=== PATIENT | female | born 1990 | race Caucasian/White ===

== ENCOUNTER 2017-05-29 03:21 | Inpatient (IN) | payer BC ==
[2017-05-29] MEDS: Oxytocin/Normal Saline 30 UNIT/500 ML BAG IV SCH (06:03)
[2017-05-29] MEDS: Lactated Ringers 1,000 ML IV SCH ×2 (06:03→18:33)
[2017-05-29] MEDS ORDERED: Sodium Chloride 0.9% 10 ML Syringe FLUSH PRN (06:57)
[2017-05-29] MEDS ORDERED: Misoprostol 400 MCG (4 X 100 MCG TAB) RECTAL PRN (06:57)
[2017-05-29] MEDS ORDERED: Carboprost Tromethamine 250 MCG/1 ML Amp IM PRN (06:57)
[2017-05-29] MEDS ORDERED: Lactated Ringers 500 ML IV ONE (06:57)
[2017-05-29] MEDS ORDERED: Methylergonovine 0.2 MG/1 ML Amp IM PRN (06:57)
[2017-05-29] MEDS ORDERED: Nalbuphine 20 MG/1 ML Amp IM PRN ×2 (06:57→16:59)
[2017-05-29] MEDS ORDERED: Ondansetron 4 MG/2 ML SDV IV PRN (06:57)
[2017-05-29] MEDS ORDERED: Lidocaine 1% 30 ML SDV INJECT PRN (06:57)
--- NOTE | 2017-05-29 08:48 | HP ---
CHIEF COMPLAINT: Bag of elizabeth has ruptured. HISTORY OF PRESENT ILLNESS: A 27-year-old, 1, para 0, currently at 38 and 3/7 weeks' gestation in her based on last menstrual period, dating confirmed with 20-week ultrasound, presented to Labor and Delivery this morning close to 4:00 a.m. about 3 hours after spontaneous rupture at home and wanting to be checked. She had verified AmniSure testing, equivocal Nitrazine testing, and we allowed her to ambulate for a couple of hours before official admission. She has been doing well. Good movement. A little bit of pink tinge with a spontaneous rupture but no gross vaginal bleeding. No headaches or blurry vision. No chest pain or shortness of breath. No fever or chills. No foul- smelling drainage or discharge. No change in her swelling. HISTORY: Normal anatomy ultrasound at 19 weeks 5 days. Cardiac views did need to be repeated and were normal. Placenta is anterior corpus. LABORATORY DATA: Blood type A positive. Antibody screen negative. Rubella nonimmune. Syphilis nonreactive. Hepatitis B, HIV, and hepatitis C all negative. Gonorrhea and chlamydia negative. Thyroid normal. Wet prep negative. Glucose tolerance test at one hour was 137; three-hour test was passed. Group B strep is negative. PAST MEDICAL HISTORY: Bacterial vaginosis. Ear piercings. No tattoos, IV drug use, or transfusions. History of bronchitis and chicken pox. History of external hemorrhoid and irregular menses, controlled with control pills. PAST SURGICAL HISTORY: Dental extractions. FAMILY HISTORY: Father and brother with asthma. Sister has a history of multiple births. Paternal side of the family also has a history of twins. A brother has a mental handicap due to Walters-Dieker syndrome, also known as lissencephaly 17p deletion. Paternal aunt has breast cancer. Maternal grandmother had twins. Paternal grandmother had two sets of twins. Paternal grandfather; uncertain of his history, but he did have a cancer of uncertain primary and was a smoker. Otherwise, family history is negative for any defects, cystic fibrosis, anesthesia reactions, bleeding problems, clotting disorders, and seizures. 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 Her , Pilo, works on the farm. They have a Labrador dog at home. They are nonsmokers. No alcohol exposure this . MEDICATIONS: vitamins and Tagamet as needed. ALLERGIES: No known drug allergies. REVIEW OF SYSTEMS: As per the history of present illness. No regular contractions. Only some mild cramping. No diarrhea or constipation. No dysuria. No recent GI upset. No other acute concerns at this time. ASSESSMENT: 1. A 38 and 3/7 weeks' gestation by last menstrual period. 2. 1, para 0. 3. Premature rupture of membranes. 4. Blood type A positive, rubella nonimmune, and group B streptococcus negative. OBJECTIVE: Initial Vital Signs: Blood pressure 139/87, pulse of 85, and temperature is 98.6. HEENT: Grossly unremarkable. Neck: Supple without adenopathy. Heart: Regular without murmur. Lungs: Clear bilaterally. Auscultation with equal chest expansion. Abdomen: Soft, gravid, and nontender. heart tones are 130 beats per minute at baseline. Moderate wmho-vk-qtvy variability. Accelerations noted. [place] showing mild contractions about every 3 to 4 minutes with some spacing intermittently. Vaginal: Cervix is dimple, thick, and high per nurse's examination. Extremities: Trace edema. No erythema or tenderness. Neurologic: No focal deficits. PLAN: The patient has been admitted to the hospital, and Pitocin has been running for a couple of hours. We plan on keeping it at 6 to allow some cervical ripening because the cervix is long and thick and only one dimple dilated. After that, we will continue increasing the Pitocin as tolerated to get her into active labor. The patient and her are in agreement with the plan. [facility] /[id number]
[2017-05-29] MEDS ORDERED: hydrALAZINE 25 MG Tab PO PRN (19:09)
[2017-05-29] MEDS ORDERED: hydrOXYzine HCl 25 MG Tab PO PRN (19:13)
[2017-05-30] MEDS: Lactated Ringers 1,000 ML IV SCH ×2 (04:47→05:29)
[2017-05-30] MEDS ORDERED: EPINEPHrine 1 MG/ML SDV ONE (05:00)
[2017-05-30] MEDS ORDERED: fentaNYL 100 MCG/2 ML SDV ONE (05:00)
[2017-05-30] MEDS: Oxytocin/Normal Saline 30 UNIT/500 ML BAG IV SCH (05:30)
--- NOTE | 2017-05-30 05:59 | PCM.PRNOTE ---
- Free Text/Narrative Note: Requested to provide analgesia to full term patient in severe pain. Upon entering the room, patient is lying on left side complaining of severe abdominal pain and discomfort. Procedure was discussed with patient including adverse outcomes and expectations. Pt consented to analgesia, SAB/IT. Pt placed into a sitting position. Landmarks for SAB/IT were identified and marked. Back was prepped with betadine x3. A sterile, transparent, fenestrated drape was applied. Excess betadine was removed. Using 3 mL of a 1% lidocaine solution, a skin wheel was placed at the L3/L4 interspace. First attempt was unsuccessful, had a paresthesia to right leg. Second attempt, using same technique, was at L4/L5, also unsuccessful. Pt had a paresthesia to right leg. Third attempt was back at L3/L4 and angled a little lateral. A 24 ga (4 inch ) Pencan spinal needle was inserted until positive for CSF. Negative for heme or paresthesias. Injected fentanyl 20 mcg, sufentanil 10 mcg, and 12 mg of a 0.75% bupivacaine solution with an epi wash. Pt was placed left lateral position for approximately 20 minutes. There were zero complications or adverse outcomes. Will continue to monitor.
[2017-05-30] MEDS ORDERED: Ampicillin 2 GM in Sodium Chloride 0.9% 100 ML IV SCH (08:30)
[2017-05-30] MEDS ORDERED: Sodium Chloride 0.9% 10 ML Syringe FLUSH PRN (10:41)
[2017-05-30] MEDS ORDERED: Simethicone 80 MG Tab.Chew PO PRN (10:41)
[2017-05-30] MEDS ORDERED: Benzocaine/Menthol 20%-0.5% Spray 56 GM Canister TOP PRN (10:41)
--- NOTE | 2017-05-30 11:07 | PN ---
DATE: 05/30/2017 SUBJECTIVE: The patient has had an intrathecal overnight, and she is starting to feel some contractions again. Also, reports that she is feeling warm, otherwise amniotic fluid has remained clear, and she has been tolerating her labor well. She is generally tired and a little frustrated that she has not delivered as of yet. movement continues to be good. No other acute concerns were raised on her part. Last night, artificial rupture of membranes of forebag was performed with return of copious amounts of clear fluid. The head remained at -3 station during that time, and even when she was rechecked again after. She was 3 cm at time of artificial rupture and then when recheck a few hours later, was still at 3 cm. Due to the other patient needs on the floor and Pitocin being at 20 without very adequate labor, the Pitocin was turned off for a couple of hours and she was allowed to sit in the tub and then we restarted and IUPC was placed. Overnight the maximum MVUs achieved so far are 150, Pitocin is currently at 20 and they are still trying to increase that. OBJECTIVE: Vital Signs have remained stable. Blood pressure is 133/74, pulse of 86, temperature currently at a maximum of 100.0 degrees Fahrenheit, with TemporalScanner. Mother is resting comfortably in bed. Reports she is starting to feel the contractions again. heart tones were tracing at 130 minutes beats per minute at baseline with moderate conc-gg-yckb variability. Accelerations still noted early and occasional late deceleration would be noted, and very rare variable as well. Contractions are every where from every 3-4 minutes. Current MVUs are still only about 150. Cervix exam per the nurse is currently 6 cm dilated, and baby's head is much easier to reach than it had been overnight. ASSESSMENT: 1. 1, para 0. 2. A 38 and 4/7 weeks' gestation. 3. Prolonged premature rupture of membranes. 4. Early signs of developing chorioamnionitis with elevating maternal temperature. Still no tachycardia. No foul-smelling drainage or discharge. No reports of uterine tenderness. No maternal tachycardia. 5. Blood type A positive, rubella nonimmune, and group B strep negative. 6. Prolonged stage I with overall dysfunctional labor pattern. PLAN: With IUPC in place, we will continue to push the Pitocin as much as we can to hopefully achieve vaginal delivery. We will start ampicillin and gentamicin for antibiotics in anticipation that she is developing chorioamnionitis. Recheck her in a couple of hours and if she is not making adequate cervical change or if we start having any signs of compromise, would proceed to primary low transverse section. This is briefly discussed with the patient and her , and we will continue to actively manage at this time. [facility] /[id number] MTDD
[2017-05-30] MEDS ORDERED: EPINEPHrine 1 MG/ML SDV IV ONE (11:29)
[2017-05-30] MEDS ORDERED: fentaNYL 100 MCG/2 ML SDV ITHECAL ONE (11:29)
[2017-05-30] MEDS: Ibuprofen 800 MG Tab PO PRN ×2 (13:59→22:07)
[2017-05-30] MEDS ORDERED: Measles, Mumps & Rubella Vaccine 0.5 ML SDV SUBCUT ONE (17:33)
[2017-05-30] MEDS: Acetaminophen 325 MG Tab PO PRN (18:14)
[2017-05-30] MEDS: Docusate Sodium 100 MG Cap PO PRN (22:07)
[2017-05-31] MEDS: Acetaminophen 325 MG Tab PO PRN (05:14)
[2017-05-31] MEDS: Ibuprofen 800 MG Tab PO PRN ×2 (06:14→16:31)
--- NOTE | 2017-05-31 09:08 | DEL ---
DATE: 05/30/2017 PREPROCEDURE DIAGNOSES: 1. A 38 weeks 4 days gestation based on last menstrual period. 2. 1, para 0-0-0-0. 3. Prolonged Premature rupture of membranes. 4. Blood type A positive. Rubella nonimmune. GBS negative. 5. Glucose tolerance test at 1-hour was 137, passed 3-hour test. POSTPROCEDURE DIAGNOSES: 1. 38 weeks 4 days gestation female based on last menstrual period. 2. 1, now para 1-0-0-1. 3. Prolonged Premature rupture of membranes. 4. Blood type A positive. Rubella nonimmune. Group B streptococcus negative. 5. GTT 137, passed 3hr test. 6. Status post vaginal delivery with second-degree laceration repair. BRIEF HISTORY: A 27-year-old with the above-listed diagnoses, presented to the hospital approximately 3 hours status post spontaneous rupture of clear fluid at home. She presented at 0400 hours with rupture reported to be at 0100 hours. She had a verified AmniSure testing, equivocal Nitrazine testing, and allowed to ambulate before she was officially admitted. Pitocin used to augment labor. Forebag ruptured with copious fluid. IUPC used to monitor MUVs and after it was placed it seemed th help position. See history and physical and progress notes for further details. PROCEDURE IN DETAIL: With the patient in dorsal lithotomy position, she delivered a viable female infant over intact perineum with a second-degree laceration. The was dried and stimulated. Mouth and nose were bulb suctioned and baby was placed up on mother's abdomen. After at least 45 second delay, the umbilical cord was doubly clamped and then father of the baby cut the cord. Cord blood sample was collected. Gentle traction was applied to the umbilical cord with fundal massage while the peritoneum and vaginal canal were inspected. There was a second-degree laceration with some brisk bleeding that was repaired with 3-0 Vicryl in a standard fashion. Fundal massage was continued and repeated until placenta was delivered with trailing membranes. Placenta was inspected and there were no tears or missing cotyledon in placenta. ESTIMATED BLOOD LOSS: 300 mL. COMPLICATIONS: None. FINDINGS: Viable female born at 1007. scores of 8 and 9. weight 3385 g (7 lb 7 oz) DISPOSITION: Mother and baby are stable in room at this time. Procedure performed under my direct supervision and with my assistance by Teresa Pierre, MS3. Agree with note as scribed on my behalf. -senior android software engineer 06/06/17 0441 MODL /[id number] MTDD
--- NOTE | 2017-05-31 09:44 | PN ---
DATE: 05/31/2017 SUBJECTIVE: The patient is awake this and holding the her baby. She will be shortly after the interview. She has no concerns. She has no new fevers overnight. She is ambulating within the room, urinating with minimal burning and pain. No headache, nausea, vomiting. No numbness or tingling in extremities. No new abdominal pains. No joint swelling or joint pains. No fever or chills. No foul odor to the lochia. PHYSICAL EXAMINATION: Vital Signs: Temperature 98.3 F, Pulse 94, BP 125/79, Respiration 16, Sp02 100 % on room air HEENT: Head is atraumatic and normocephalic. Eyes, extraocular movements intact. Nose, normal examination. Mouth, no sore, mucosa membrane Neck: Supple. Trachea is midline. Cardiovascular: S1 and S2. Regular rate and rhythm. Lungs: Lung sounds are clear in all vásquez auscultated. No cough. No wheeze. Abdomen: Bowel sounds normoactive. Pelvis: Uterus firm, palpable, 1 fingerbreadth below the umbilicus. Non-tender. Neurologic: The patient is alert and oriented. LABORATORY DATA: Hemoglobin 9.3, platelets 144, hematocrit 28.7, WBC 10.3. ASSESSMENT: The patient is 1 day postdelivery and recovering well. 27-year-old, , with second-degree laceration repair. Prolonged PROM with temperature elevation although not febrile in labor and treated with IV antibiotics. PLAN: Mother and baby are recovering well. Planning discharge for both tomorrow. Continue routine cares. Continue to monitor for signs of infection. Patient seen and examined. Agree with note scribed on my behalf by Teresa Pierre MS3. -[facility] 06/06/17 0445. MODL /[id number] MAGDALENO
[2017-05-31] MEDS: Ferrous Sulfate 325 MG Tab PO SCH (10:44)
[2017-05-31] MEDS: Docusate Sodium 100 MG Cap PO PRN ×2 (10:44→21:26)
[2017-05-31] MEDS: Prenatal Multivitamin with Calcium/Folic Acid/Iron Tab PO SCH (10:44)
[2017-06-01] MEDS: Ibuprofen 800 MG Tab PO PRN ×2 (02:08→10:17)
[2017-06-01] MEDS: Prenatal Multivitamin with Calcium/Folic Acid/Iron Tab PO SCH (08:57)
[2017-06-01] MEDS: Ferrous Sulfate 325 MG Tab PO SCH (08:57)
--- NOTE | 2017-06-01 09:41 | DISCH ---
ADMISSION DIAGNOSES: 1. A 38 weeks 4/7 gestation by last menstrual period. 2. 1, para 1-0-0-0. 3. Prolonged premature rupture of membranes. 4. Blood type A positive. Group B strep negative. Rubella nonimmune. DISCHARGE DIAGNOSES: 1. A 38 weeks 4/7 day gestation based on last menstrual period. 2. 1, now para 1-0-0-1. 3. Prolonged premature rupture of membranes. 4. Early signs of developing chorioamnionitis treated with ampicillin and gentamicin during labor. 5. Blood type A positive. Rubella MMR vaccine given. Group B strep negative. 6. Status post second-degree laceration tear. 7. Prolonged stage I with overall dysfunctional labor pattern, requiring active management. BRIEF HISTORY: A 27-year-old female presented to the hospital at 0100 05/29/18 hours for spontaneous rupture of clear fluids at home and found to be juan jose. See admission history and physical for full details. HOSPITAL COURSE: The patient's labor was augmented with Pitocin. Pitocin levels were increased until they reached 20 units per minute. At that time, her uterus began to have decreased respond to Pitocin and contractions spaced out. The patient then had intrathecal May 30, 2017. and Pitocin was restarted and IUPC placed. She later reported feeling warm. Temperature was measured at 100.0 degrees, IV ampicillin and gentamicin were administered. Amniotic fluid remained clear and she was tolerating labor well. Once the patient had reached full dilation and 100% effacement, she was allowed to push. The patient delivered a viable female but did need a second degree laceration repair. Since delivery, she has been ambulating and tolerating a regular diet and voiding without complications. No further signs of symptoms of potential infection. Baby will be able to go home with mom without complications. DISCHARGE CONDITION: Good. PHYSICAL EXAMINATION: Vital Signs: Temperature 98.3 Fahrenheit, pulse 84, blood pressure 118/73, respiratory rate of 16, O2 saturations of 100% on room air. HEENT: Normocephalic, atraumatic. Heart: S1 and S2 regular rate and rhythm without obvious murmur. Lungs: Clear to auscultation bilaterally. No cough or wheeze. Abdomen: Soft and nontender. Fundus is firm and palpable below the umbilicus. Extremities: No edema, erythema, or tenderness of joints noted. LABORATORY DATA: White blood cells within normal limits at 10.3, platelet count 144, hemoglobin of 9.3, admission hemoglobin 11.4, admission platelets 188 admission white blood cells 7.6. DISPOSITION: Home with family. MEDICATIONS: 1. Ibuprofen 600 mg every 6 hours as needed for pain, 2. Tylenol 650 mg every 6 hours as needed for pain, 3. Iron 325 mg twice daily 4. Colace 100 mg twice daily as needed for constipation. INSTRUCTIONS: Should not lift anything over 25 pounds. Needs pelvic rest of 6 weeks. She needs to make an appointment to see Dr. Redd in the office for a 6 - week examination. Other routine vaginal delivery instructions were provided and questions were answered. Patient seen and examined. Agree with note scribed on my behalf by Teresa Pierre MS3. -[facility] 06/06/17 0049. MODL /[id number] Teresa Pierre MS3 dictating for Dr. Redd (06/01/17) [facility]
== END 2017-06-01 11:30 | disposition home or self-care (01) | DRG 560 ==
LOC: DL.OBCHECK 03:21 → DL.OB 03:31 → OBSVTOIN 05-30 10:07 → DL.MS 05-30 19:10
PROVIDERS: ADMIT Family Medicine; ATTEND Family Medicine
PROC: 10E0XZZ Delivery of Products of Conception, External Approach (ICD-10-PCS; principal; 2017-05-30)
PROC: 0KQM0ZZ Repair Perineum Muscle, Open Approach (ICD-10-PCS; 2017-05-30)
PROC: 00HU33Z Insertion of Infusion Device into Spinal Canal, Percutaneous Approach (ICD-10-PCS; 2017-05-30)
PROC: 3E0R3BZ Introduction of Anesthetic Agent into Spinal Canal, Percutaneous Approach (ICD-10-PCS; 2017-05-30)
PROC: 10H07YZ Insertion of Other Device into Products of Conception, Via Natural or Artificial Opening (ICD-10-PCS; 2017-05-30)
DX: O42.02 Full-term premature rupture of membranes, onset of labor within 24 hours of rupture (principal); O70.1 Second degree perineal laceration during delivery; O63.0 Prolonged first stage (of labor); O41.1230 Chorioamnionitis, third trimester, not applicable or unspecified; Z3A.38 38 weeks gestation of pregnancy; Z37.0 Single live birth
CPT/HCPCS: 36415; 59300; 59409; 83986; 84112; 85025; 85027; 90471; 90707; A9270-GY; J0171; J0290; J1580; J2300; J2405; J2590; J3010; J7050; J7120

== ENCOUNTER 2021-01-04 04:36 | Inpatient (IN) | payer BC ==
[~2021-01-04 04:36] MED LIST: EPINEPHrine 1 MG/ML SDV ONE; Sodium Bicarbonate 4.2% 2.5 MEQ/5 ML SDV ONE; Sodium Chloride 0.9% 20 ML SDV ONE; fentaNYL 100 MCG/2 ML SDV ITHECAL ONE
[2021-01-04] MEDS ORDERED: Misoprostol 400 MCG (4 X 100 MCG TAB) RECTAL PRN (06:12)
[2021-01-04] MEDS ORDERED: Methylergonovine 0.2 MG/1 ML Amp IM PRN (06:12)
[2021-01-04] MEDS ORDERED: Lactated Ringers 1,000 ML IV ONE (06:12)
[2021-01-04] MEDS ORDERED: Lidocaine 1% 30 ML SDV INJECT PRN (06:12)
[2021-01-04] MEDS ORDERED: Carboprost Tromethamine 250 MCG/1 ML Amp IM PRN (06:12)
[2021-01-04] MEDS ORDERED: Sodium Chloride 0.9% 10 ML Syringe FLUSH PRN (06:12)
[2021-01-04] MEDS ORDERED: Tranexamic Acid 1,000 MG in Sodium Chloride 0.9% 100 ML IV PRN (06:12)
[2021-01-04] MEDS ORDERED: Ondansetron 4 MG/2 ML SDV IVPUSH PRN ×2 (06:12→06:16)
[2021-01-04] MEDS ORDERED: Oxytocin/Normal Saline 30 UNIT/500 ML BAG IV SCH (06:15)
[2021-01-04] MEDS ORDERED: Lactated Ringers 1,000 ML IV SCH (06:15)
[2021-01-04] MEDS ORDERED: Naloxone 2 MG/2 ML Syringe IVPUSH PRN (06:16)
[2021-01-04] MEDS ORDERED: ePHEDrine 50 MG/ML SDV IVPUSH PRN (06:16)
[2021-01-04] MEDS ORDERED: Promethazine 25 MG/ML SDV IM PRN (06:16)
--- NOTE | 2021-01-04 08:02 | HP ---
CHIEF COMPLAINT: Increased force and frequency of contractions. HISTORY OF PRESENT ILLNESS: A 30-year-old 3, para 1-0-1-1, currently at 39 and 2/7th weeks gestation based on reliable last menstrual period concordant with 20-week ultrasound, reports that she was having contractions yesterday that kind of petered out and then around 1 o'clock in the morning started having regular contractions and by 2 a.m. they were every 6 minutes and she has lost her mucus plug. Denies any leakage of fluid. Good movement. Decided that she was likely in early labor, so came in to the hospital for further evaluation and admission. OB HISTORY: overall unremarkable. She had a normal 20-week screen with anterior placenta and at 38 weeks we did a growth ultrasound for size greater than dates and she was found to have mild polyhydramnios with an RON of 20.7. First delivered 05/30/2017, 38 weeks 4 days' gestation, spontaneous vaginal delivery, 7-pound 7.4-ounce female. This was prolonged premature rupture of membranes with a long induction and later artificial rupture of a forebag was necessary. She also had some mild thrombocytopenia. Next , delivered 12/09/2019, 6 weeks 5 days estimated gestation. LABS: Blood type A positive. Antibody screen negative. Rubella positive. Syphilis negative. Hepatitis B negative. HIV negative. Gonorrhea and chlamydia negative. TSH normal. Hepatitis C nonreactive. Wet prep was positive for clue cells. One-hour glucose tolerance test of 174; 3-hour test was normal at 78, 151, 152 and 128. She has had some mild anemia with most recent office hemoglobin of 11.0 and platelets 207. Group B strep test is negative. PAST MEDICAL HISTORY: COVID-19 infection 02/19/2020, mild symptoms only; external hemorrhoids; and mild anxiety. SURGICAL HISTORY: Dental surgery. FAMILY HISTORY: Mother is alive and well. Father is alive with asthma and anxiety. Sister Maria Antonia has had twins, so have other family members on the paternal side of the family. Maria Antonia also has anxiety. Sister Sienna with anxiety. Brother Gloriake with asthma. Brother Linwood . He had a mental handicap due to Walters-Dieker syndrome, lissencephaly 17p deletion, which is usually related to consanguinity. Maternal grandmother and had a history of multiple births. Paternal grandfather and was healthy. Paternal grandmother , had multiple births with 2 sets of twins. Paternal grandfather , cancer of uncertain primary, he was a smoker. Paternal aunt is alive and has breast cancer. Negative family history for defects, cystic fibrosis, anesthesia problems, bleeding, clotting disorders and seizures. SOCIAL HISTORY: The patient is a nonsmoker. Has no drug or alcohol exposure in . 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 Her Pilo is working for the [employer]. They have 1 dog and 1 daughter together. REVIEW OF SYSTEMS: As per the history of present illness. Otherwise, denying any fever, chills, cough, cold symptoms, headaches, blurry vision, chest pain, shortness of breath, right upper quadrant pain, nausea, vomiting or other concerns. MEDICATIONS: Vitamin C 500 mg daily, iron 325 mg daily, Claritin 10 mg daily as needed and magnesium oxide 250 mg daily as needed. ALLERGIES: No known drug allergies. OBJECTIVE: General: Pleasant, well-appearing 30-year-old female. Vital Signs: Blood pressure 121/68, temperature is 98.0, initial pulse of 104, respiratory rate of 18. HEENT: Grossly unremarkable. Heart: Regular without murmur. Lungs: Clear to auscultation bilaterally with good chest expansion. Abdomen: Gravid, soft, nontender. Baby palpates vertex with a baseline heart rate of 135 beats per minute. Moderate zpgs-dv-quto variability. Accelerations noted. Category 1 tracing. [place] shows contractions every 5 to 7 minutes with varying intensity. Cervix exam per the nurse, 3 cm dilated, 50% effaced, posterior, high and ballotable. Extremities: Trace edema. No erythema or tenderness noted. Skin: PUPPPs rash noted on the abdomen, otherwise within normal limits. Neurological: Appropriate with no focal deficits. ASSESSMENT: 1. 39 and 2/7th weeks intrauterine based on last menstrual period. 2. 3, para 1-0-1-1. 3. Polyhydramnios, mild. 4. Pruritic urticarial papules and plaques of . 5. Anemia of . 6. Generalized anxiety. 7. History of gastroesophageal reflux disease. PLAN: Admitted to the hospital at this time and allow normal labor to progress. Once the head is well applied against the cervix, can perform artificial rupture of membranes to assist things. She may need a small amount of Pitocin to help things along as well. She is planning intrathecal for pain management and will be anticipating vaginal delivery as long as the clinical course continues to go well. All of her questions have been answered. MOD[facility] /[id number] MAGDALENO
[2021-01-04] MEDS ORDERED: Sodium Bicarbonate 4.2% 2.5 MEQ/5 ML SDV ONE (10:37)
[2021-01-04] MEDS ORDERED: fentaNYL 100 MCG/2 ML SDV ONE (10:37)
[2021-01-04] MEDS ORDERED: EPINEPHrine 1 MG/ML SDV ONE (10:37)
--- NOTE | 2021-01-04 10:58 | PCM.SN.2 ---
- Free Text/Narrative Note: Intrathecal. Sitting position, sterile prep and drape. 1% lidocaine w bicarb for skinwheal to L2 L3 interspace. Introducer, 24 ga pencan x 1. I:1000 pf epi wash, 20 mcg pf sufenta, 30 mcg pf fentanyl, 0.4 ml pf NS and 6 mg of 0.75% pf Marcaine injected after CSF aspiration. Pt to L lateral position . Procedure time 1035 to 1110
--- NOTE | 2021-01-04 11:07 | PN ---
DATE: 01/04/2021 SUBJECTIVE: The patient is resting fairly comfortably at this time. I had just within the last 15 minutes checked her and she was 4+ cm dilated, about 50% effaced, posterior, and baby ballotable, but her contractions were more regular and closer together. We discussed artificial rupture of membranes and trying to just get a small hole in the sac so as to decrease risk of prolapsed cord and she was agreeable to proceed. She has since gotten up to go to the bathroom and had a large pool of fluid since that time, so I came back to recheck her. OBJECTIVE: The patient remains comfortable. States that the contractions have not really changed over the last 15 minutes. She is 4.5 cm, 50% effaced. Cervix is posterior, soft, multiparous. Bag of water still palpable and this was ruptured with [place] as the head was better applied at this time and we received good return of fluid. head ensured to be against the cervix at the end of the exam. No palpable parts or cord. ASSESSMENT: 1. Status post artificial rupture of membranes. 2. 3, para 1-0-1-1. 3. 39 and 2/7 weeks gestation. 4. History of polyhydramnios, pruritic urticarial papules and plaques of , and anemia of . PLAN: Continue active labor management and anticipate vaginal delivery later on today. [facility] /[id number]
[2021-01-04] MEDS ORDERED: Simethicone 80 MG Tab.Chew PO PRN (13:54)
[2021-01-04] MEDS ORDERED: Docusate Sodium 100 MG Cap PO PRN (13:54)
[2021-01-04] MEDS ORDERED: Benzocaine/Menthol 20%-0.5% Spray 78 GM Cannister TOP PRN (13:54)
[2021-01-04] MEDS ORDERED: Witch Hazel Medicated Pads 100/Jar TOP PRN (14:36)
[2021-01-04] MEDS: Ibuprofen 800 MG Tab PO PRN (16:27)
[2021-01-04] MEDS: Acetaminophen 325 MG Tab PO PRN (19:39)
[2021-01-05] MEDS: Ibuprofen 800 MG Tab PO PRN ×2 (00:16→08:07)
[2021-01-05] MEDS: Acetaminophen 325 MG Tab PO PRN ×2 (03:28→08:08)
[2021-01-05] MEDS ORDERED: Ferrous Sulfate 325 MG Tab PO SCH (08:00)
--- NOTE | 2021-01-05 08:25 | PCM.PNPP ---
- General Info Date of Service: 01/05/21 Admission Dx/Problem (Free Text): Status Post Normal Spontaneous Vaginal Delivery Subjective Update: Millicent is up in bed, feeding her this morning. She relays no acute overnight events. Only complaint is sore nipples. Functional Status: Reports: Pain Controlled, Tolerating Diet, Ambulating, Urinating - Review of Systems General: Reports: No Symptoms HEENT: Reports: No Symptoms Pulmonary: Reports: No Symptoms Cardiovascular: Reports: No Symptoms Gastrointestinal: Reports: No Symptoms Genitourinary: Reports: No Symptoms Musculoskeletal: Reports: No Symptoms Skin: Reports: Dryness (painful nipples) Neurological: Reports: No Symptoms Psychiatric: Reports: No Symptoms - General Info Date of Service: 01/05/21 - Patient Data Vital Signs - Most Recent: Last Vital Signs Temp 97.5 F 01/04/21 19:32 Pulse 82 01/04/21 19:32 Resp 16 01/04/21 19:32 BP 128/76 01/04/21 19:32 Pulse Ox 100 01/04/21 11:30 Weight - Most Recent: 210 lb Med Orders - Current: Current Medications Acetaminophen (Acetaminophen 325 Mg Tab) 650 mg PO Q4H PRN PRN Reason: Pain (Mild 1-3) and fever Last Admin: 01/05/21 08:08 Dose: 650 mg Documented by: Benzocaine/Menthol (Benzocaine/Menthol 20%-0.5% [place] 78 Gm Cannister) 0 gm TOP Q4H PRN PRN Reason: Perineal comfort measures Last Admin: 01/04/21 16:28 Dose: 1 spray Documented by: Docusate Sodium (Docusate Sodium 100 Mg Cap) 100 mg PO BID PRN PRN Reason: Constipation Last Admin: 01/04/21 19:40 Dose: 100 mg Documented by: Ferrous Sulfate (Ferrous Sulfate 325 Mg Tab) 325 mg PO WITHBREAKFAST MOLINA Last Admin: 01/05/21 08:07 Dose: 325 mg Documented by: Tranexamic Acid 1,000 mg/ (Sodium Chloride) 110 mls @ 660 mls/hr IV ONETIME PRN PRN Reason: Bleeding Oxytocin/Sodium Chloride (Pitocin In Ns 30 Unit/500 Ml) 30 unit in 500 mls @ 2 mls/hr IV TITRATE MOLINA; Protocol Last Titration: 01/04/21 16:00 Dose: 0 munits/min, 0 mls/hr Documented by: Ibuprofen (Ibuprofen 800 Mg Tab) 800 mg PO Q8H PRN PRN Reason: Cramping Last Admin: 01/05/21 08:07 Dose: 800 mg Documented by: Methylergonovine Maleate (Methylergonovine 0.2 Mg/1 Ml Amp) 0.2 mg IM ASDIRECTED PRN PRN Reason: Hemorrhage Misoprostol (Misoprostol 400 Mcg (4 X 100 Mcg Tab)) 800 mcg RECTAL ASDIRECTED PRN PRN Reason: Hemorrhage Ondansetron HCl (Ondansetron 4 Mg/2 Ml Sdv) 4 mg IVPUSH Q4H PRN PRN Reason: Nausea/Vomiting Last Admin: 01/04/21 10:28 Dose: 4 mg Documented by: Prenat Multivit/Combination Saw Operator/Iron/Folic Ac ( Multivitamin With Calcium/Folic Acid/Iron Tab) 1 each PO DAILY [facility] Last Admin: 01/05/21 08:07 Dose: 1 each Documented by: Sertraline HCl (Sertraline 50 Mg Tab) 50 mg PO DAILY [facility] Last Admin: 01/05/21 08:07 Dose: 50 mg Documented by: Simethicone (Simethicone 80 Mg Tab.Chew) 80 mg PO Q4H PRN PRN Reason: Gas Sodium Chloride (Sodium Chloride 0.9% 10 Ml Syringe) 10 ml FLUSH ASDIRECTED PRN PRN Reason: Keep Vein Open Witch Marisa (Witch Marisa Medicated Pads 100/Jar) 1 pad TOP ASDIRECTED PRN PRN Reason: Hemorrhoids Last Admin: 01/04/21 16:27 Dose: 1 applic Documented by: Discontinued Medications Carboprost Tromethamine (Carboprost Tromethamine 250 Mcg/1 Ml Amp) 250 mcg IM ASDIRECTED PRN PRN Reason: HEMORRHAGE Ephedrine Sulfate (Ephedrine 50 Mg/Ml Sdv) 5 mg IVPUSH Q5M PRN PRN Reason: See Label Comments Epinephrine HCl (Epinephrine 1 Mg/Ml Sdv) Confirm Administered Dose 1 mg .ROUTE .STK-MED ONE Stop: 01/04/21 10:38 Last Admin: 01/04/21 10:55 Dose: Not Given Documented by: Fentanyl (Fentanyl 100 Mcg/2 Ml Sdv) Confirm Administered Dose 100 mcg .ROUTE .STK-MED ONE Stop: 01/04/21 10:38 Last Admin: 01/04/21 10:55 Dose: Not Given Documented by: Lactated Ringer's (Ringers, Lactated) 1,000 mls @ 999 mls/hr IV BOLUS ONE Stop: 01/04/21 07:12 Last Admin: 01/04/21 10:48 Dose: 999 mls/hr Documented by: Lactated Ringer's (Ringers, Lactated) 1,000 mls @ 125 mls/hr IV ASDIRECTED MOLINA Last Admin: 01/04/21 09:36 Dose: 125 mls/hr Documented by: Lidocaine HCl (Lidocaine 1% 30 Ml Sdv) 30 ml INJECT ASDIRECTED PRN PRN Reason: Perineal Repair Naloxone HCl (Naloxone 2 Mg/2 Ml Syringe) 0.1 mg IVPUSH SEECOMMENT PRN PRN Reason: Respiratory Depression Ondansetron HCl (Ondansetron 4 Mg/2 Ml Sdv) 4 mg IVPUSH Q4H PRN PRN Reason: Nausea/Vomiting Promethazine HCl (Promethazine 25 Mg/Ml Sdv) 12.5 mg IM Q6H PRN PRN Reason: Nausea/Vomiting Sodium Bicarbonate (Sodium Bicarbonate 4.2% 2.5 Meq/5 Ml Sdv) Confirm Admini stered Dose 2.5 meq .ROUTE .STK-MED ONE Stop: 01/04/21 10:38 Last Admin: 01/04/21 10:55 Dose: Not Given Documented by: Sufentanil Citrate (Sufentanil 50 Mcg/1 Ml Amp) Confirm Administered Dose 50 mcg .ROUTE .STK-MED ONE Stop: 01/04/21 10:38 Last Admin: 01/04/21 10:55 Dose: Not Given Documented by: - Infant Interaction Disposition, : in Room with Family Interaction: Holding Infant Feeding: Breastfed Infant; Nursed Well Support Person: - Recovery Exam Fundal Tone: Firm Fundal Level: 2 Fingerbreadths Above Umbilicus Fundal Placement: Midline Lochia Amount: Small Lochia Color: Rubra/Red Perineum Description: Intact, Minimal Bruising/Swelling Episiotomy/Laceration: Approximated Bladder Status: Nonpalpable Urinary Elimination: Voided - Exam General: Alert, Oriented HEENT: Pupils Equal Neck: Supple Lungs: Clear to Auscultation, Normal Respiratory Effort Cardiovascular: Regular Rate, Regular Rhythm GI/Abdominal Exam: Normal Bowel Sounds, Soft, Non-Tender, No Organomegaly, No Distention, No Abnormal Bruit, No Mass, Pelvis Stable Extremities: Normal Inspection, Normal Range of Motion, Non-Tender, No Pedal Edema, Normal Capillary Refill Skin: Warm, Dry, Intact Wound/Incisions: Healing Well Neurological: No New Focal Deficit Psy/Mental Status: Alert, Normal Affect, Normal Mood - Problem List & Annotations (1) Normal vaginal delivery SNOMED Code(s): 74340610, 750412664 Code(s): O80 - ENCOUNTER FOR FULL-TERM UNCOMPLICATED DELIVERY Status: Acute Current Visit: Yes (2) Nipple dermatitis SNOMED Code(s): 713225422, 386055917 Code(s): L30.9 - DERMATITIS, UNSPECIFIED Status: Acute Current Visit: Yes Annotation/Comment:: Breast feeding - Problem List Review Problem List Initiated/Reviewed/Updated: Yes - Assessment Assessment:: Millicent Stern is a 30-year-old F, G3, now P2012, day 1 after normal spontaneous vaginal delivery complicated by mild polyhydramnios and a repaired 1st degree perineal laceration. - Plan Plan:: 1. Normal Spontaneous Vaginal Delivery: continue normal cares. Advised patient of alarm symptoms for which she should seek medical care, such as Fever > 100.4, severe headache not relieved by tylenol, high blood pressure, vision changes, shortness of breath, chest pain, or excessive vaginal bleeding. 2. Nipple pain: prescribed nipple cream dvt prophylaxis: patient ambulating Diet: general Disposition: d/c home with today
[2021-01-05] MEDS ORDERED: Sertraline 50 MG Tab PO SCH (09:00)
[2021-01-05] MEDS ORDERED: Prenatal Multivitamin with Calcium/Folic Acid/Iron Tab PO SCH (09:00)
--- NOTE | 2021-01-08 13:32 | PCM.DCSUM1 ---
Discharge Summary - Hospital Course Diagnosis: Stroke: No - Discharge Data Discharge Disposition: Home, Self-Care 01 Condition: Good - Referral to Home Health Primary Care Physician: Maxine Christianson MD - Discharge Diagnosis/Problem(s) (1) Normal vaginal delivery SNOMED Code(s): 94311619, 742974215 ICD Code: O80 - ENCOUNTER FOR FULL-TERM UNCOMPLICATED DELIVERY Status: Acute (2) Nipple dermatitis SNOMED Code(s): 172456459, 172650313 ICD Code: L30.9 - DERMATITIS, UNSPECIFIED Status: Acute Problem Details: Breast feeding - Patient Summary/Data Consults: Consultations 01/04/21 13:54 Consult to Shot Bagger [CONS] Routine - Patient Instructions Diet: Usual Diet as Tolerated Activity: No Lifting Over 25 Pounds, No Strenuous Activities Driving: May Drive Today Showering/Bathing: May Shower Notify Provider of: Fever, Increased Pain, Swelling and Redness, Drainage, Nausea and/or Vomiting Other/Special Instructions: Routine postvaginal delivery care instructions for a mother. - Discharge Plan *PRESCRIPTION DRUG MONITORING PROGRAM REVIEWED*: Not Applicable *COPY OF PRESCRIPTION DRUG MONITORING REPORT IN PATIENT LAMAR: Not Applicable Prescriptions/Med Rec: Sertraline [Zoloft] 50 mg PO DAILY #30 tablet Home Medications: Home Meds Vit No.129/Iron/FA [ One Daily Tablet] 1 each PO DAILY 05/29/17 [History] Acetaminophen [Tylenol] 650 mg PO Q4H PRN tablet 06/01/17 [Rx] Ascorbic Acid [Vitamin C] 1,000 mg PO DAILY 01/04/21 [History] Ferrous Sulfate 325 mg PO DAILY 01/04/21 [History] Magnesium 250 mg PO DAILY 01/04/21 [History] Acetaminophen [Tylenol] 650 mg PO Q4H PRN tablet 01/05/21 [Rx] Benzocaine/Menthol [Dermoplast Pain Relief 20%-0.5% [place]] 1 spray TOP Q4H PRN canister 01/05/21 [Rx] Docusate Sodium [Colace] 100 mg PO BID PRN cap 01/05/21 [Rx] Ferrous Sulfate 325 mg PO WITHBREAKFAST tablet 01/05/21 [Rx] Ibuprofen [Motrin] 800 mg PO Q8H PRN tablet 01/05/21 [Rx] Sertraline [Zoloft] 50 mg PO DAILY #30 tablet 01/05/21 [Rx] charles Tavares [Tucks] 1 pad TOP ASDIRECTED PRN pad 01/05/21 [Rx] Patient Handouts: Vaginal Delivery, Care of a Perineal Tear Referrals: Maxine Mendez MD [Primary Care Provider] - (Make appointment when you bring your son tomorrow for first check. ) - Patient Data Vitals - Most Recent: Last Vital Signs Temp 98.1 F 01/05/21 08:00 Pulse 76 01/05/21 08:00 Resp 16 01/05/21 08:00 BP 117/74 01/05/21 08:00 Pulse Ox 100 01/04/21 11:30 Weight - Most Recent: 210 lb Med Orders - Current: Current Medications Discontinued Medications Acetaminophen (Acetaminophen 325 Mg Tab) 650 mg PO Q4H PRN PRN Reason: Pain (Mild 1-3) and fever Last Admin: 01/05/21 08:08 Dose: 650 mg Documented by: Benzocaine/Menthol (Benzocaine/Menthol 20%-0.5% [place] 78 Gm Cannister) 0 gm TOP Q4H PRN PRN Reason: Perineal comfort measures Last Admin: 01/04/21 16:28 Dose: 1 spray Documented by: Carboprost Tromethamine (Carboprost Tromethamine 250 Mcg/1 Ml Amp) 250 mcg IM ASDIRECTED PRN PRN Reason: HEMORRHAGE Docusate Sodium (Docusate Sodium 100 Mg Cap) 100 mg PO BID PRN PRN Reason: Constipation Last Admin: 01/04/21 19:40 Dose: 100 mg Documented by: Ephedrine Sulfate (Ephedrine 50 Mg/Ml Sdv) 5 mg IVPUSH Q5M PRN PRN Reason: See Label Comments Epinephrine HCl (Epinephrine 1 Mg/Ml Sdv) Confirm Administered Dose 1 mg .ROUTE .STK-MED ONE Stop: 01/04/21 10:38 Last Admin: 01/04/21 10:55 Dose: Not Given Documented by: Epinephrine HCl (Epinephrine 1 Mg/Ml Sdv) 0.1 mg .XX .STK-MED ONE Stop: 01/04/21 00:02 Fentanyl (Fentanyl 100 Mcg/2 Ml Sdv) Confirm Administered Dose 100 mcg .ROUTE .STK-MED ONE Stop: 01/04/21 10:38 Last Admin: 01/04/21 10:55 Dose: Not Given Documented by: Fentanyl (Fentanyl 100 Mcg/2 Ml Sdv) 30 mcg ITHECAL .STK-MED ONE Stop: 01/04/21 00:02 Ferrous Sulfate (Ferrous Sulfate 325 Mg Tab) 325 mg PO WITHBREAKFAST MOLINA Last Admin: 01/05/21 08:07 Dose: 325 mg Documented by: Lactated Ringer's (Ringers, Lactated) 1,000 mls @ 999 mls/hr IV BOLUS ONE Stop: 01/04/21 07:12 Last Admin: 01/04/21 10:48 Dose: 999 mls/hr Documented by: Lactated Ringer's (Ringers, Lactated) 1,000 mls @ 125 mls/hr IV ASDIRECTED MOLINA Last Admin: 01/04/21 09:36 Dose: 125 mls/hr Documented by: Tranexamic Acid 1,000 mg/ (Sodium Chloride) 110 mls @ 660 mls/hr IV ONETIME PRN PRN Reason: Bleeding Oxytocin/Sodium Chloride (Pitocin In Ns 30 Unit/500 Ml) 30 unit in 500 mls @ 2 mls/hr IV TITRATE [facility]; Protocol Last Titration: 01/04/21 16:00 Dose: 0 munits/min, 0 mls/hr Documented by: Ibuprofen (Ibuprofen 800 Mg Tab) 800 mg PO Q8H PRN PRN Reason: Cramping Last Admin: 01/05/21 08:07 Dose: 800 mg Documented by: Lidocaine HCl (Lidocaine 1% 30 Ml Sdv) 30 ml INJECT ASDIRECTED PRN PRN Reason: Perineal Repair Methylergonovine Maleate (Methylergonovine 0.2 Mg/1 Ml Amp) 0.2 mg IM ASDIRECTED PRN PRN Reason: Hemorrhage Misoprostol (Misoprostol 400 Mcg (4 X 100 Mcg Tab)) 800 mcg RECTAL ASDIRECTED PRN PRN Reason: Hemorrhage Naloxone HCl (Naloxone 2 Mg/2 Ml Syringe) 0.1 mg IVPUSH SEECOMMENT PRN PRN Reason: Respiratory Depression Ondansetron HCl (Ondansetron 4 Mg/2 Ml Sdv) 4 mg IVPUSH Q4H PRN PRN Reason: Nausea/Vomiting Last Admin: 01/04/21 10:28 Dose: 4 mg Documented by: Ondansetron HCl (Ondansetron 4 Mg/2 Ml Sdv) 4 mg IVPUSH Q4H PRN PRN Reason: Nausea/Vomiting Prenat Multivit/[place]/Iron/Folic Ac ( Multivitamin With Calcium/Folic Acid/Iron Tab) 1 each PO DAILY [facility] Last Admin: 01/05/21 08:07 Dose: 1 each Documented by: Promethazine HCl (Promethazine 25 Mg/Ml Sdv) 12.5 mg IM Q6H PRN PRN Reason: Nausea/Vomiting Sertraline HCl (Sertraline 50 Mg Tab) 50 mg PO DAILY [facility] Last Admin: 01/05/21 08:07 Dose: 50 mg Documented by: Simethicone (Simethicone 80 Mg Tab.Chew) 80 mg PO Q4H PRN PRN Reason: Gas Last Admin: 01/05/21 12:55 Dose: 80 mg Documented by: Sodium Bicarbonate (Sodium Bicarbonate 4.2% 2.5 Meq/5 Ml Sdv) Confirm Administered Dose 2.5 meq .ROUTE .STK-MED ONE Stop: 01/04/21 10:38 Last Admin: 01/04/21 10:55 Dose: Not Given Documented by: Sodium Bicarbonate (Sodium Bicarbonate 4.2% 2.5 Meq/5 Ml Sdv) 0.5 meq .XX .STK- MED ONE Stop: 01/04/21 00:02 Sodium Chloride (Sodium Chloride 0.9% 10 Ml Syringe) 10 ml FLUSH ASDIRECTED PRN PRN Reason: Keep Vein Open Sodium Chloride (Sodium Chloride 0.9% 20 Ml Sdv) 0.4 ml .XX .STK-MED ONE Stop: 01/04/21 00:02 Sufentanil Citrate (Sufentanil 50 Mcg/1 Ml Amp) Confirm Administered Dose 50 mcg .ROUTE .STK-MED ONE Stop: 01/04/21 10:38 Last Admin: 01/04/21 10:55 Dose: Not Given Documented by: Sufentanil Citrate (Sufentanil 50 Mcg/1 Ml Amp) 20 mcg ITHECAL .STK-MED ONE Stop: 01/04/21 00:02 Witch Marisa (Witch Marisa Medicated Pads 100/Jar) 1 pad TOP ASDIRECTED PRN PRN Reason: Hemorrhoids Last Admin: 01/04/21 16:27 Dose: 1 applic Documented by:
== END 2021-01-05 14:00 | disposition home or self-care (01) | DRG 560 ==
LOC: DL.OBCHECK 04:36 → DL.OB 06:13 → OBSVTOIN 13:19
PROVIDERS: ADMIT Family Medicine; ATTEND Family Medicine
PROC: 10E0XZZ Delivery of Products of Conception, External Approach (ICD-10-PCS; principal; 2021-01-04)
PROC: 3E0R3BZ Introduction of Anesthetic Agent into Spinal Canal, Percutaneous Approach (ICD-10-PCS; 2021-01-04)
PROC: 00HU33Z Insertion of Infusion Device into Spinal Canal, Percutaneous Approach (ICD-10-PCS; 2021-01-04)
PROC: 10907ZC Drainage of Amniotic Fluid, Therapeutic from Products of Conception, Via Natural or Artificial Opening (ICD-10-PCS; 2021-01-04)
PROC: 0HQ9XZZ Repair Perineum Skin, External Approach (ICD-10-PCS; 2021-01-04)
DX: O40.3XX0 Polyhydramnios, third trimester, not applicable or unspecified (principal); Z3A.39 39 weeks gestation of pregnancy; Z37.0 Single live birth; O99.02 Anemia complicating childbirth; D64.9 Anemia, unspecified; O70.0 First degree perineal laceration during delivery; O99.344 Other mental disorders complicating childbirth; F41.9 Anxiety disorder, unspecified; Z20.822 Contact with and (suspected) exposure to COVID-19
CPT/HCPCS: 36415; 59409; 85027; A9270-GY; J0171; J2405; J2590; J3010; J7120; U0002